=== PATIENT | female | born 1970 | race Caucasian/White ===

== ENCOUNTER 2017-06-17 19:55 | Emergency (ER) | payer OTHER ==
[2017-06-17 20:13] VITALS: BP 115/81; PULSE 71; TEMP 97.6; BMI 23.8
--- NOTE | 2017-06-17 21:27 | PDOC ---
History of Present Illness - General Chief Complaint: Choking Sensation Stated Complaint: CHOKING SENSATION Time Seen by Provider: 06/17/17 20:35 History Source: Patient Exam Limitations: No Limitations - History of Present Illness Initial Comments: 06/17/17 21:08 Patient is here with foreign body sensation to her throat, states was eating a small piece of fruit approximately 3 hours ago and swallowed the patient and feels may have lodged in her throat. Patient states coughed at the time, felt there might be an airway issue 2 hours ago but that has since resolved. Patient is able to eat piece of bread, a bagel, and drink lots of fluids including ice chips and states feels mildly improved. Still has concerns about possible foreign body to throat. Denies bleeding from throat, no breathing problems, no nausea or vomiting. 06/17/17 22:53 Occurred: reports: just prior to arrival, this evening Severity: reports: mild Pain Location: reports: neck Associated Symptoms (Fall): denies symptoms Past History - Travel Traveled outside of the country in the last 30 days: No Close contact w/someone who was outside of country & ill: No - Past Medical History Allergies/Adverse Reactions: Allergies Allergy/AdvReac Type Severity Reaction Status Date / Time No Known Allergies Allergy Verified 06/17/17 20:09 Home Medications: Ambulatory Orders NK [No Known Home Medication] 06/17/17 - Psycho/Social/Smoking Cessation Hx Suicidal Ideation: No Smoking History: Never smoked Have you smoked in the past 12 months: No Information on smoking cessation initiated: No Hx Alcohol Use: No Drug/Substance Use Hx: No Substance Use Type: None Trauma Specific PMHX - Complaint Specific PMHX Back Injury: No Neck Injury: No Review of Systems - Review of Systems Able to Perform ROS?: Yes Is the patient limited Malagasy proficient: Yes Constitutional: Yes: See HPI. No: Symptoms Reported HEENTM: Yes: Symptoms Reported, See HPI, Throat Pain (with faint foreign body sensation). No: Throat Swelling, Mouth Pain, Difficulty Swallowing Respiratory: Yes: See HPI. No: Symptoms reported, Cough, Shortness of Breath, Wheezing ABD/GI: Yes: See HPI. No: Symptoms Reported Musculoskeletal: Yes: Symptoms Reported Neurological: Yes: See HPI. No: Symptoms reported All Other Systems: Reviewed and Negative *Physical Exam - Vital Signs Last Vital Signs Temp Pulse Resp BP Pulse Ox 97.6 F 71 20 115/81 100 06/17/17 20:10 06/17/17 20:10 06/17/17 20:10 06/17/17 20:10 06/17/17 20:10 - Physical Exam General Appearance: Yes: Nourished, Appropriately Dressed, Apparent Distress HEENT: positive: MINDY, Normal ENT Inspection, TMs Normal, Pharynx Normal ( redness, swelling, bleeding, or foreign body noted in posterior pharynx, visualized.) Neck: positive: Supple. negative: Tender Respiratory/Chest: positive: Lungs Clear, Normal Breath Sounds. 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 Albright, radiology. Patient will follow up with enT as needed *DC/Admit/Observation/Transfer Diagnosis at time of Disposition: Foreign body - Discharge Dispostion Disposition: HOME Condition at time of disposition: Stable Admit: No - Referrals Referrals: Issac Seymour [Primary Care Provider] - Fransisco Rae MD [Staff Physician] - - Patient Instructions Printed Discharge Instructions: DI for Foreign Body, Swallowed-Adult Additional Instructions: Drink lots of fluids, avoid hard chewing foods or heavy foods until symptoms resolve Stay with soft foods like ice cream, yogurt, Jell-O etc. May follow-up with ear nose and throat doctor if sensation persists Turn immediately to emergency department for fevers, worsened pain, airway problems or difficulty breathing. - Post Discharge Activity Work/School Note: Back to Work
== END 2017-06-17 21:46 | disposition home or self-care (01) ==
LOC: JERFT 19:55
DX: R09.89 Other specified symptoms and signs involving the circulatory and respiratory systems (principal)
CPT/HCPCS: 70360-TC; 99281-25